=== PATIENT | female | born 1980 | race Caucasian/White ===

== ENCOUNTER 2018-03-19 08:15 | Emergency (ER) | payer OTHER ==
[2018-03-19] MEDS ORDERED: DECADRON 10MG INJ. IV ONE (08:52)
[2018-03-19] MEDS ORDERED: Sodium Chloride 0.9% 1000 ML 1,000 ML IV SCH (09:00)
[2018-03-19] MEDS ORDERED: DECADRON 10MG INJ. ONE (09:02)
[2018-03-19] MEDS ORDERED: Sodium Chloride 0.9% 1000 ML 1,000 ML ONE (09:02)
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
[2018-03-19] MEDS ORDERED: Adacel Vial IM ONE ×2 (09:14→09:15)
[2018-03-19 09:17] LABS: Appearance CLEAR (CLEAR); Bilirubin NEGATIVE (NEGATIVE); Blood SMALL Ery/ul (0-5); Glucose NEGATIVE (NEGATIVE); Ketones NEGATIVE (NEGATIVE); Leukocyte Esterase NEGATIVE (NEGATIVE); Nitrite NEGATIVE (NEGATIVE); Protein,Urine Dip NEGATIVE (Negative); Specific Gravity 1.014 (1.005-1.025); Urobilinogen NEGATIVE mg/dL (0-1)
[2018-03-19 09:39] LABS: Amphetamine,Urine NEGATIVE (NEGATIVE); Barbiturate,Urine NEGATIVE (NEGATIVE); Benzodiazepine,Urine NEGATIVE (NEGATIVE); Cocaine,Urine NEGATIVE (NEGATIVE); Methadone,Urine NEGATIVE (NEGATIVE); Opiate,Urine NEGATIVE (NEGATIVE); PCP,Urine NEGATIVE (NEGATIVE); THC,Urine POSITIVE (NEGATIVE)
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
[2018-03-19] MEDS ORDERED: TORAdol 30 mg Injection IV ONE (10:26)
[2018-03-19] MEDS ORDERED: TORAdol 30 mg Injection ONE (10:31)
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
[2018-03-19 11:31] VITALS: BP 103/86; PULSE 76; O2SAT 98
== END 2018-03-19 11:33 | disposition home or self-care (01) ==
LOC: ED 08:15
DX: S00.03XA Contusion of scalp, initial encounter (principal); S16.1XXA Strain of muscle, fascia and tendon at neck level, initial encounter; S70.01XA Contusion of right hip, initial encounter; S40.011A Contusion of right shoulder, initial encounter; R51 Headache; M54.2 Cervicalgia; M25.511 Pain in right shoulder; R07.81 Pleurodynia; M25.551 Pain in right hip; R07.9 Chest pain, unspecified; M79.671 Pain in right foot; Y04.0XXA Assault by unarmed brawl or fight, initial encounter
CPT/HCPCS: 36000; 70450; 70490; 71046; 71100; 73030; 73502; 73630; 76376; 80307; 81001; 84703; 90471; 90715; 96360; 96374; 96375; 99284; J1100; J1885; L0172

== ENCOUNTER 2018-09-04 17:00 | Emergency (ER) | payer BC, OTHER ==
[2018-09-04] MEDS ORDERED: DUONEB 0.5-3 MG/3 ml Neb IH ONE ×2 (17:07→17:28)
--- NOTE | 2018-09-04 17:24 | ERPHSYRPT ---
- History of Present Illness Time Seen by Provider: 09/04/18 17:22 Source: patient Exam Limitations: no limitations Patient Subjective Stated Complaint: Pt states "I hurt all over, my ears are messed up and I am off balance and I have been coughing." Triage Nursing Assessment: Pt presented through the front doors, alert and oriented X 3, skin pwd. PT ambulates with an upright steady gait, able to speak in clear full sentences. Pt has intermittant cough, non productive. Physician History: Pt states "I hurt all over, my ears are messed up and I am off balance and I have been coughing." c/o cough, low grade fever with chills Timing/Duration: yesterday Severity of Dyspnea-Max: mild Severity of Dyspnea-Current: mild Possible Cause: no prior episodes Associated Symptoms: cough, chest pain/discomfort, fever, wheezing, weakness, productive cough, sweating Allergies/Adverse Reactions: erythromycin base Allergy (Verified 08/28/15 10:17) Penicillins Allergy (Verified 08/28/15 10:17) Hx Tetanus, Diphtheria Vaccination/Date Given: Yes Hx Influenza Vaccination/Date Given: No Hx Pneumococcal Vaccination/Date Given: No Immunizations Up to Date: Yes - Review of Systems Constitutional: Fever, Chills, Fatigue, Malaise Eyes: No Symptoms Ears, Nose, & Throat: No Symptoms Respiratory: Cough, Dyspnea, Dyspnea on Exertion (CRISTOBAL), Wheezing Cardiac: Chest Pain, No Edema, No Syncope Abdominal/Gastrointestinal: No Abdominal Pain, No Nausea, No Vomiting, No Diarrhea Genitourinary Symptoms: No Dysuria Musculoskeletal: No Back Pain, No Neck Pain Skin: No Rash Neurological: No Dizziness, No Focal Weakness, No Sensory Changes Psychological: No Symptoms Endocrine: No Symptoms All Other Systems: Reviewed and Negative - Past Medical History Pertinent Past Medical History: Yes Respiratory History: Asthma Psycho-Social History: Anxiety - Past Surgical History Past Surgical History: Yes Musculoskeletal: Orthopedic Surgery Female Surgical History: Tubal Ligation - Social History Smoking Status: Current every day smoker How long have you smoked: 24 Exposure to second hand smoke: Yes Drug Use: marijuana Patient Lives Alone: No - Female History Hx Last Menstrual Period: 08/23/2018 Hx Now: No - Nursing Vital Signs Nursing Vital Signs: Initial Vital Signs Temperature 98.9 F 09/04/18 17:01 Pulse Rate 77 09/04/18 17:01 Respiratory Rate 22 09/04/18 17:01 Blood Pressure 123/79 09/04/18 17:01 O2 Sat by Pulse Oximetry 97 09/04/18 17:01 Pain Scale Pain Intensity 6 - Physical Exam General Appearance: no apparent distress, alert Eye Exam: PERRL/EOMI Neck Exam: normal inspection, supple Respiratory Exam: diminished breath sounds, crackles/rales, rhonchi, wheezing Cardiovascular/Chest Exam: normal heart sounds, regular rate/rhythm Abdominal/Gastrointestinal Exam: soft, No tenderness, No distention, No mass Extremity Exam: non-tender, normal range of motion, normal inspection, no calf tenderness, no pedal edema Neurologic Exam: alert, oriented x 3, cooperative, associate of science in nursing II-XII nml as tested, sensation nml, No motor deficits Skin Exam: normal color, warm, No dry SpO2 Interpretation: normal SpO2: 100 - Course Nursing assessment & vital signs reviewed: Yes - Radiology Exams Chest X-ray Interpretation: Reviewed by me, No Pneumonia Ordered Tests: Active Orders 24 hr Category Date Time Status Oxygen-ED Only Nasal Cannula 2 lpm Care 09/04/18 17:07 Active CHEST 2 VIEWS (PA AND LAT) Stat Exams 09/04/18 17:08 Taken BMP Stat Lab 09/04/18 17:24 Completed CBC W DIFF Stat Lab 09/04/18 17:24 Completed Peak Expiratory Flow Rate ONCE RT 09/04/18 17:41 Completed Respiratory Therapy Assessment DAILY RT 09/04/18 17:38 Completed Medication Summary Discontinued Medications Generic Name Dose Route Start Last Admin Trade Name Freq PRN Reason Stop Dose Admin Albuterol/Ipratropium 3 ml 09/04/18 17:07 09/04/18 17:36 Duoneb 0.5-3 Mg/3 Ml Neb IH 09/04/18 17:08 3 ml STAT ONE Administration Albuterol/Ipratropium Confirm 09/04/18 17:28 Duoneb 0.5-3 Mg/3 Ml Neb Administered 09/04/18 17:29 Dose 3 ml IH .STK-MED ONE Ceftriaxone Sodium 1,000 mg 09/04/18 17:43 Rocephin 1000 Mg Inj IM 09/04/18 17:44 STAT ONE Lab/Rad Data: Laboratory Result Diagrams 09/04/18 17:24 09/04/18 17:24 Laboratory Results 09/04/18 09/04/18 Range/Units 17:24 17:24 WBC 5.1 (4.0-10.5) K/mm3 RBC 4.46 (4.1-5.4) M/mm3 Hgb 13.6 (12.0-16.0) gm/dl Hct 40.4 (35-47) % MCV 90.6 (78-100) fl MCH 30.5 (26-32) pg MCHC 33.7 (32-36) g/dl RDW 14.9 H (11.5-14.0) % Plt Count 204 (150-450) K/mm3 MPV 11.0 H (6-9.5) fl Gran % 55.4 (36.0-66.0) % Eos # (Auto) 0.17 (0-0.5) Absolute Lymphs (auto) 1.57 (1.0-4.6) Absolute Monos (auto) 0.50 (0.0-1.3) Lymphocytes % 31.1 (24.0-44.0) % Monocytes % 9.9 (0.0-12.0) % Eosinophils % 3.4 (0.00-5.0) % Basophils % 0.2 (0.0-0.4) % Absolute Granulocytes 2.80 (1.4-6.9) Basophils # 0.01 (0-0.4) Sodium 141 (137-145) mmol/L Potassium 3.9 (3.5-5.1) mmol/L Chloride 111 H (98-107) mmol/L Carbon Dioxide 22 (22-30) mmol/L Anion Gap 12.6 (5-15) MEQ/L BUN 6 L (7-17) mg/dL Creatinine 0.68 (0.52-1.04) mg/dL Estimated GFR > 60.0 ML/MIN Glucose 79 (74-106) mg/dL Calcium 9.0 (8.4-10.2) mg/dL - Progress Progress: improved Air Movement: fair Blood Culture(s) Obtained: No Antibiotics given: Yes Counseled pt/family regarding: lab results, diagnosis, need for follow-up, rad results, smoking cessation - Departure Departure Disposition: Home Clinical Impression: Bronchitis Condition: Stable Critical Care Time: No Referrals: ARMEN ROME [ACTIVE STAFF] - Instructions: Acute Bronchitis, Adult (DC) Additional Instructions: Discharge/Care Plan YONI TERESA was seen on 09/04/18 in the Emergency Room. The patient was counseled regarding Diagnosis,Lab results, Imaging studies, need for follow up and when to return to the Emergency Room. Prescriptions given: Discharge Note I have spoken with the patient and/or caregivers. I have explained the patient' s condition, diagnosis and treatment plan based on the information available to me at this time. I have answered the patient's and/or caregiver's questions and addressed any concerns. The patient and/or caregivers have as good understanding of the patient's diagnosis, condition and treatment plan as can be expected at this point. The vital signs have been stable. The patient's condition is stable and appropriate for discharge from the emergency department. The patient will pursue further outpatient evaluation with the primary care physician or other designated or consulting physician as outlined in the discharge instructions. The patient and/or caregivers are agreeable to this plan of care and follow-up instructions have been explained in detail. The patient and/or caregivers have received these instruction. The patient/and or caregivers are aware that any significant change in condition or worsening of symptoms should prompt an immediate return to this or the closest emergency department or call 911. Prescriptions: Ipratropium/Albuterol Sulfate [Combivent Inhaler] 15 gm IH QIDPRN PRN #1 aer.w.adap PRN Reason: Shortness Of Breath Doxycycline Hyclate 100 mg PO BID #20 tablet Albuterol/Ipratropium 3ml Neb* [DUONEB 0.5-3 MG/3 ml Neb] 3 ml IH QID #60 ampul.neb Guaifenesin/Hydrocodone [Hydrocodone-Guaif 2.5-200 mg/5] 5 ml PO QID #120 solution MDD 4 times a day
[2018-09-04 17:27] LABS: BASOPHIL % 0.2 % (0.0-0.4); Basophil (Absolute #) 0.01 (0-0.4); Eosinophil % 3.4 % (0.00-5.0); Eosinophil (Absolute #) 0.17 (0-0.5); Granulocytes % 55.4 % (36.0-66.0); Hematocrit 40.4 % (35-47); Hemoglobin 13.6 gm/dl (12.0-16.0); Lymphocyte (Absolute #) 1.57 (1.0-4.6); Lymphocytes % 31.1 % (24.0-44.0); Mean Cell Volume 90.6 fl (78-100); Mean Corpuscular Hemoglobin 30.5 pg (26-32); Mean Corpuscular Hgb Concent. 33.7 g/dl (32-36); Monocytes % 9.9 % (0.0-12.0); Platelet Count 204 K/mm3 (150-450); Red Blood Count 4.46 M/mm3 (4.1-5.4); Red Cell Distribution Width 14.9 % (11.5-14.0); White Blood Count 5.1 K/mm3 (4.0-10.5)
[2018-09-04 17:40] LABS: ANION GAP 12.6 MEQ/L (5-15); BLOOD UREA NITROGEN 6 mg/dL (7-17); CHLORIDE 111 mmol/L (98-107); Carbon Dioxide 22 mmol/L (22-30); Creatinine 1 0.68 mg/dL (0.52-1.04); Glucose 79 mg/dL (74-106); Potassium 3.9 mmol/L (3.5-5.1); SODIUM 141 mmol/L (137-145)
[2018-09-04] MEDS ORDERED: Rocephin 1000 MG INJ IM ONE (17:43)
[2018-09-04] MEDS ORDERED: Rocephin 1000 MG INJ ONE (18:02)
[2018-09-04 19:05] VITALS: BP 120/76; PULSE 72; O2SAT 98
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
== END 2018-09-04 19:07 | disposition home or self-care (01) ==
LOC: ED 17:00
DX: J40 Bronchitis, not specified as acute or chronic (principal); J45.909 Unspecified asthma, uncomplicated; Z72.0 Tobacco use
CPT/HCPCS: 36415; 71046; 80048; 85025; 94150; 94640; 96372; 99284; J0696; A9270-GY

== ENCOUNTER 2019-07-07 21:26 | Emergency (ER) | payer OTHER ==
[2019-07-07] MEDS ORDERED: PERCOCET TABLET 5/325MG PO STA (21:39)
[2019-07-07] MEDS ORDERED: TORAdol 30 mg Injection IM ONE (21:40)
[2019-07-07] MEDS ORDERED: TORAdol 30 mg Injection ONE (21:51)
[2019-07-07] MEDS ORDERED: PERCOCET TABLET 5/325MG ONE (21:51)
--- NOTE | 2019-07-07 22:32 | ERPHSYRPT ---
- History of Present Illness Time Seen by Provider: 07/07/19 21:38 Source: patient Exam Limitations: no limitations Patient Subjective Stated Complaint: Patient states " I hopped off the front porch and landed onto the side of my left ankle and felt something snap". Triage Nursing Assessment: Patient asrrived to ER in W/C. Patient tearful and states she is in alot of pain. Patient 1 assist to tansfer to bed. Patient able to answer questions appropriatley. Patient A/O times 4. Patient unable to bear weight on left lower foot. Left ankle with mild swelling on outerside. Patient is able to wiggle toes and can move but states she cant stand the pain. No bruising noted. Cap refill < 3 seconds. + Pedal pulse to left foot strong and palpable. Patient sattes she has good sensation. Physician History: 38 years old female presented in the ER after she accidentally fell on her left ankle while she was hopping in her house. She heard a popping sound. She is unable to put any weight afterward. She is complaining of moderate to severe sharp shooting pain in the left ankle, aggravated with movements, palpation and partial relief with being still. Associated with swelling especially on the lateral ankle. No swelling or pain in the foot itself. No injury anywhere else. Method of Injury: fell Occurred: just prior to arrival Quality: sharpness Severity of Pain-Max: severe Severity of Pain-Current: severe Lower Extremities Pain: ankle: left Modifying Factors: Improves With: cold therapy, immobilization, movement Associated Symptoms: unable to bear weight Allergies/Adverse Reactions: erythromycin base Allergy (Verified 08/28/15 10:17) Penicillins Allergy (Verified 08/28/15 10:17) Hx Tetanus, Diphtheria Vaccination/Date Given: Yes Hx Influenza Vaccination/Date Given: No Hx Pneumococcal Vaccination/Date Given: No Immunizations Up to Date: Yes Travel Risk - International Travel Have you traveled outside of the country in past 3 weeks: No Have you or anyone close to you been diagnosed with or: No Do your reside in a community with a known COVID-19 case?: Yes If Yes where:: [facility] - Coronavirus Screening Has patient experienced Coronavirus symptoms: No - Review of Systems Constitutional: No Symptoms Eyes: No Symptoms Ears, Nose, & Throat: No Symptoms Respiratory: No Symptoms Cardiac: No Symptoms Abdominal/Gastrointestinal: No Symptoms Musculoskeletal: Injury, Joint Pain, Joint Swelling Skin: No Symptoms Neurological: No Symptoms Psychological: No Symptoms Endocrine: No Symptoms - Past Medical History Pertinent Past Medical History: Yes Neurological History: No Pertinent History ENT History: No Pertinent History Cardiac History: No Pertinent History Respiratory History: Asthma Endocrine Medical History: No Pertinent History Musculoskeletal History: No Pertinent History GI Medical History: GERD History: No Pertinent History Psycho-Social History: Anxiety, Depression Female Reproductive Disorders: No Pertinent History - Past Surgical History Past Surgical History: Yes Neuro Surgical History: No Pertinent History Cardiac: No Pertinent History Respiratory: No Pertinent History Gastrointestinal: No Pertinent History Genitourinary: No Pertinent History Musculoskeletal: Orthopedic Surgery Female Surgical History: Section, Tubal Ligation Other Surgical History: Right Knee Surgery. - Social History Smoking Status: Current every day smoker How long have you smoked: 25 years Exposure to second hand smoke: Yes Drug Use: marijuana Patient Lives Alone: No - Female History Hx Last Menstrual Period: Tubes tied Hx Now: No - Nursing Vital Signs Nursing Vital Signs: Initial Vital Signs Temperature 98.1 F 07/07/19 21:36 Pulse Rate 85 07/07/19 21:36 Respiratory Rate 20 07/07/19 21:36 Blood Pressure 136/86 07/07/19 21:36 O2 Sat by Pulse Oximetry 99 07/07/19 21:36 Pain Scale Pain Intensity 10 - Physical Exam General Appearance: no apparent distress Eyes, Ears, Nose, Throat Exam: normal ENT inspection Neck Exam: normal inspection, non-tender, supple Cardiovascular/Respiratory Exam: chest non-tender, normal breath sounds, regular rate/rhythm Back Exam: decreased range of motion, point tenderness Ankle Exam: right ankle: non-tender, normal inspection, normal range of motion, left ankle: bone tenderness, limited range of motion, pain, soft tissue tenderness, swelling Neuro/Tendon Exam: normal sensation Mental Status Exam: alert, oriented x 3, cooperative Skin Exam: normal color SpO2 Interpretation: normal SpO2: 98 O2 Delivery: Room Air - Course Nursing assessment & vital signs reviewed: Yes Ordered Tests: Active Orders 24 hr Category Date Time Status ANKLE (3 VIEWS) Stat Exams 07/07/19 21:39 Taken Medication Summary Discontinued Medications Generic Name Dose Route Start Last Admin Trade Name Freq PRN Reason Stop Dose Admin Ketorolac Tromethamine 30 mg 07/07/19 21:40 07/07/19 21:54 Toradol 30 Mg Injection IM 07/07/19 21:41 30 mg STAT ONE Administration Ketorolac Tromethamine Confirm 07/07/19 21:51 Toradol 30 Mg Injection Administered 07/07/19 21:52 Dose 30 mg .ROUTE .STK-MED ONE Oxycodone/Acetaminophen 1 tab 07/07/19 21:39 07/07/19 21:53 Percocet Tablet 5/325mg PO 07/07/19 21:40 1 tab STAT STA Administration Oxycodone/Acetaminophen Confirm 07/07/19 21:51 Percocet Tablet 5/325mg Administered 07/07/19 21:52 Dose 1 tab .ROUTE .STK-MED ONE - Progress Progress: improved, pain not gone completely, re-examined Progress Note: 07/07/19 22:59 38 years old is evaluated for left ankle pain. I did not appreciate any obvious fracture on the x-rays. Official read is pending. I believe patient has ankle sprain. Placed on a Aircast and crutches along with pain medication. Recommended outpatient follow-up with Ortho. Counseled pt/family regarding: diagnosis, need for follow-up, rad results - Departure Departure Disposition: Home Clinical Impression: Ankle sprain Qualifiers: Encounter type: initial encounter Involved ligament of ankle: unspecified ligament Laterality: left Qualified Code(s): S93.402A - Sprain of unspecified ligament of left ankle, initial encounter Condition: Stable Critical Care Time: No Referrals: FRANCESCO SHIELDS [Primary Care Provider] - Follow Up with PCP/3 days TIM THOMPSON NP [NON-STAFF PHY W/O PRIVILEGES] - (1-2 days for re evaluation) Instructions: Ankle Sprain (DC) Additional Instructions: Follow-up with primary care and orthopedic surgery for reevaluation. Weightbearing as tolerated. Take pain medications as needed. Return to ER for any worsening. Prescriptions: Hydrocodone/APAP 5-325 Tab^^^ [[place] 5-325 Tablet^^^] 1 tab PO Q6HPRN PRN #10 tablet MDD 6 PRN Reason: Pain
[2019-07-07 22:59] VITALS: BP 127/87; PULSE 86
[2019-07-07 23:00] VITALS: O2SAT 98
--- NOTE | 2019-07-08 08:26 | XRAY ---
Indication: Pain following fall. Comparison: None 3 views of the left ankle demonstrates anterior lateral soft tissue swelling with incidental tiny heel spurs, punctate medial malleolus tip heterotopic ossification, and small cuboid accessory ossicle. No other bony, articular, or soft tissue abnormalities.
== END 2019-07-07 23:27 | disposition home or self-care (01) ==
LOC: ED 21:26
DX: S93.402A Sprain of unspecified ligament of left ankle, initial encounter (principal); X50.0XXA Overexertion from strenuous movement or load, initial encounter; X50.9XXA Other and unspecified overexertion or strenuous movements or postures, initial encounter; Y93.89 Activity, other specified; Y92.89 Other specified places as the place of occurrence of the external cause; Y99.9 Unspecified external cause status; M25.572 Pain in left ankle and joints of left foot
CPT/HCPCS: 73610; 96372; 99284; J1885; A9270-GY

== ENCOUNTER 2019-10-09 18:55 | Emergency (ER) | payer OTHER ==
[2019-10-09] MEDS ORDERED: TORAdol 30 mg Injection IV ONE ×2 (19:21→22:18)
[2019-10-09] MEDS ORDERED: Sodium Chloride 0.9% 1000 ML 1,000 ML IV STA ×2 (19:21→22:12)
[2019-10-09] MEDS ORDERED: Sodium Chloride 0.9% 1000 ML 1,000 ML ONE ×2 (19:36→22:13)
[2019-10-09] MEDS ORDERED: Hydromorphone 1 mg/ml Ampule IV ONE (19:36)
[2019-10-09] MEDS ORDERED: TORAdol 30 mg Injection ONE ×2 (19:36→22:20)
[2019-10-09] MEDS ORDERED: Hydromorphone 1 mg/ml Ampule ONE (19:37)
[2019-10-09 20:06] LABS: Absolute Neutrophil Ct (ANC) 7.12 (1.4-6.9); BASOPHIL % 0.2 % (0.0-0.4); Basophil (Absolute #) 0.02 (0-0.4); Eosinophil % 0.3 % (0.00-5.0); Eosinophil (Absolute #) 0.03 (0-0.5); Hematocrit 38.1 % (35-47); Hemoglobin 12.4 gm/dl (12.0-16.0); Lymphocyte (Absolute #) 1.94 (1.0-4.6); Mean Cell Volume 87.6 fl (78-100); Mean Corpuscular Hemoglobin 28.5 pg (26-32); Mean Corpuscular Hgb Concent. 32.5 g/dl (32-36); Mean Platelet Volume 11.4 fl (7.5-11.0); Monocyte (Absolute #) 1.11 (0.0-1.3); Monocytes % 10.9 % (0.0-12.0); Neutrophil % 69.6 % (36.0-66.0); Platelet Count 225 K/mm3 (150-450); Red Blood Count 4.35 M/mm3 (4.1-5.4); Red Cell Distribution Width 17.9 % (11.5-14.0); White Blood Count 10.2 K/mm3 (4.0-10.5)
[2019-10-09 20:23] LABS: ALBUMIN 4.5 g/dL (3.5-5.0); ALKALINE PHOSPHATASE 63 U/L (38-126); AMYLASE 87 U/L (30-110); ANION GAP 8.3 MEQ/L (5-15); BLOOD UREA NITROGEN 8 mg/dL (7-17); CHLORIDE 114 mmol/L (98-107); Calcium 9.6 mg/dL (8.4-10.2); Carbon Dioxide 23 mmol/L (22-30); Creatinine 1 0.95 mg/dL (0.52-1.04); Glucose 77 mg/dL (74-106); LIPASE 25 U/L (23-300); Potassium 3.2 mmol/L (3.5-5.1); SGOT/AST 19 U/L (14-36); SGPT/ALT 16 U/L (0-35); SODIUM 142 mmol/L (137-145); Total Protein 7.6 g/dL (6.3-8.2)
[2019-10-09] MEDS ORDERED: Zofran 4 MG/2 ML VIAL ONE (20:37)
[2019-10-09] MEDS ORDERED: Zofran 4 MG/2 ML VIAL IV ONE (20:37)
[2019-10-09 22:14] LABS: Appearance SLIGHTLY CLOUDY (CLEAR); Bilirubin NEGATIVE (NEGATIVE); Blood NEGATIVE Ery/ul (0-5); Epithelial Cells RARE /HPF (FEW); Glucose NEGATIVE (NEGATIVE); Ketones SMALL (NEGATIVE); Leukocyte Esterase NEGATIVE (NEGATIVE); Mucus SLIGHT /HPF (NEGATIVE); Nitrite NEGATIVE (NEGATIVE); Protein,Urine Dip NEGATIVE (Negative); RBC 0-2 /HPF (0-2); Specific Gravity 1.013 (1.005-1.025); Urobilinogen NEGATIVE mg/dL (0-1)
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
[2019-10-09 22:33] LABS: Amphetamine,Urine NEGATIVE (NEGATIVE); Barbiturate,Urine NEGATIVE (NEGATIVE); Benzodiazepine,Urine POSITIVE (NEGATIVE); Cocaine,Urine NEGATIVE (NEGATIVE); Methadone,Urine NEGATIVE (NEGATIVE); Opiate,Urine POSITIVE (NEGATIVE); PCP,Urine NEGATIVE (NEGATIVE); THC,Urine POSITIVE (NEGATIVE)
[2019-10-10 00:16] VITALS: BP 105/63; PULSE 84; O2SAT 97
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
== END 2019-10-09 23:45 | disposition home or self-care (01) ==
LOC: ED 18:55
DX: S00.83XA Contusion of other part of head, initial encounter (principal); S80.02XA Contusion of left knee, initial encounter; S80.01XA Contusion of right knee, initial encounter; S20.229A Contusion of unspecified back wall of thorax, initial encounter; S40.011A Contusion of right shoulder, initial encounter; S70.02XA Contusion of left hip, initial encounter; S70.01XA Contusion of right hip, initial encounter; S90.32XA Contusion of left foot, initial encounter; S90.31XA Contusion of right foot, initial encounter; S90.812A Abrasion, left foot, initial encounter; S90.811A Abrasion, right foot, initial encounter; S80.212A Abrasion, left knee, initial encounter; S80.211A Abrasion, right knee, initial encounter; S00.31XA Abrasion of nose, initial encounter; S00.81XA Abrasion of other part of head, initial encounter; S50.811A Abrasion of right forearm, initial encounter; S00.12XA Contusion of left eyelid and periocular area, initial encounter; Y04.2XXA Assault by strike against or bumped into by another person, initial encounter; Y92.009 Unspecified place in unspecified non-institutional (private) residence as the place of occurrence of the external cause; M54.2 Cervicalgia; Z79.899 Other long term (current) drug therapy
CPT/HCPCS: 36000; 36415; 70450; 70486; 71045; 72125; 73030; 73521; 73522; 73562; 80053; 80307; 81001; 82150; 82550; 83690; 84484; 84703; 85025; 93005; 96360; 96361; 96374; 96375; 96376; 99285; J1170; J1885; J2405

== ENCOUNTER 2020-11-20 09:40 | Emergency (ER) | payer OTHER ==
[2020-11-20] MEDS ORDERED: Sodium Chloride 0.9% 1000 ML 1,000 ML IV STA (09:56)
[2020-11-20] MEDS ORDERED: Sodium Chloride 0.9% 1000 ML 1,000 ML ONE (09:59)
[2020-11-20 10:07] LABS: Absolute Neutrophil Ct (ANC) 3.45 (1.4-6.9); BASOPHIL % 0.2 % (0.0-0.4); Basophil (Absolute #) 0.01 (0-0.4); Eosinophil % 1.8 % (0.00-5.0); Eosinophil (Absolute #) 0.09 (0-0.5); Hemoglobin 13.6 gm/dl (12.0-16.0); Lymphocyte (Absolute #) 1.19 (1.0-4.6); Lymphocytes % 23.4 % (24.0-44.0); Mean Cell Volume 93.3 fl (78-100); Mean Corpuscular Hemoglobin 30.2 pg (26-32); Mean Corpuscular Hgb Concent. 32.4 g/dl (32-36); Monocyte (Absolute #) 0.34 (0.0-1.3); Monocytes % 6.7 % (0.0-12.0); Neutrophil % 67.9 % (36.0-66.0); Platelet Count 224 K/mm3 (150-450); Red Cell Distribution Width 14.4 % (11.5-14.0); White Blood Count 5.1 K/mm3 (4.0-10.5)
[2020-11-20 10:13] LABS: Appearance CLEAR (CLEAR); Bilirubin NEGATIVE (NEGATIVE); Blood NEGATIVE Ery/ul (0-5); Epithelial Cells RARE /HPF (FEW); Glucose NEGATIVE (NEGATIVE); Ketones NEGATIVE (NEGATIVE); Leukocyte Esterase NEGATIVE (NEGATIVE); Mucus SLIGHT /HPF (NEGATIVE); Nitrite NEGATIVE (NEGATIVE); Protein,Urine Dip NEGATIVE (Negative); Specific Gravity 1.008 (1.005-1.025); Urobilinogen NEGATIVE mg/dL (0-1)
[2020-11-20 10:16] LABS: ALBUMIN 4.3 g/dL (3.5-5.0); ALKALINE PHOSPHATASE 40 U/L (38-126); ANION GAP 15.3 MEQ/L (5-15); BLOOD UREA NITROGEN 14 mg/dL (7-17); CHLORIDE 105 mmol/L (98-107); Calcium 8.9 mg/dL (8.4-10.2); Carbon Dioxide 22 mmol/L (22-30); Creatinine 1 0.73 mg/dL (0.52-1.04); EST GLOMERULAR FILTRATION RATE > 60.0 ML/MIN; Glucose 133 mg/dL (74-106); Potassium 4.6 mmol/L (3.5-5.1); SGOT/AST 14 U/L (14-36); SGPT/ALT 12 U/L (0-35); SODIUM 138 mmol/L (137-145); Total Protein 7.2 g/dL (6.3-8.2)
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
--- NOTE | 2020-11-20 10:52 | XRAY ---
Exam: AP upright portable chest film from 11/20/2020. Comparison: AP upright portable chest film from 08/17/2020. Indication: Cough; shortness of breath. Findings: The transverse heart size is normal. I again see some granulomatous calcifications at the superior margin of the left hilum/AP window, as well as a calcified granuloma within the peripheral left upper lung field. This is unchanged from 08/17/2020. There is a tiny transverse strand of plate atelectasis or scar formation within the peripheral right lower lung field. In retrospect, I believe this is similar to 08/17/2020. The lungs are adequately inflated. No air space infiltrates, vascular congestion, pneumothorax, or pleural fluid is seen. There is a slight S-shaped scoliosis within the visualized thoracolumbar spine. No acute osseous process is seen. Impression: 1. I again see some old healed granulomatous disease on the left. 2. No air space lung infiltrates or other acute cardiopulmonary disease is seen. 3. Minimal plate atelectasis versus linear scarring at the peripheral right lower lung field, no change.
[2020-11-20] MEDS ORDERED: DECADRON 10MG INJ. IV ONE (10:59)
[2020-11-20] MEDS ORDERED: DECADRON 10MG INJ. ONE (11:03)
[2020-11-20] MEDS ORDERED: TORAdol 30 mg Injection IM ONE (11:10)
[2020-11-20 11:11] VITALS: BP 127/86; PULSE 68
[2020-11-20] MEDS ORDERED: TORAdol 30 mg Injection ONE (11:11)
[2020-11-20 11:26] VITALS: O2SAT 97
== END 2020-11-20 11:26 | disposition home or self-care (01) ==
LOC: ED 09:40
DX: U07.1 COVID-19 (principal)
CPT/HCPCS: 36000; 36415; 71045; 80053; 81001; 83605; 85025; 96372; 96374; 99284; U0003; J1100; J1885

== ENCOUNTER 2022-12-22 13:34 | Emergency (ER) | payer MEDICAID, OTHER ==
--- NOTE | 2022-12-22 13:37 | ERPHSYRPT ---
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 It is in the lower lumbar region in the paraspinous muscle distribution. It is on the left side. Patient has been doing heavy lifting twisting turning at work. In addition, she has been helping a friend move. She did not fall or have an acute traumatic injury to this area. Patient is on ibuprofen daily as well as clonazepam. However, she states that clonazepam she has not been taking for the last few days because she is out of that medication. Patient has no difficulty urinating and has no urinary tract infection symptoms. She has no abdominal pain. She denies chest pain and she denies shortness of breath. She absolutely does not want any narcotic medication. Timing/Duration: week(s) Method of Injury: bending, lifting, turning Quality: sharp Back Pain Location: paraspinous muscles (Left, lumbar level) Severity of Pain-Max: moderate Severity of Pain-Current: moderate Modifying Factors: Improves With: movement Associated Symptoms: lower back pain (Left side paraspinous muscle), muscle spasms, No urinary incontinence, No loss of bowel control, No numbness in legs/feet Previous symptoms: no prior history, no recent treatment Allergies/Adverse Reactions: aripiprazole [From Abilify] Allergy (Verified 12/22/22 13:48) erythromycin base Allergy (Verified 12/22/22 13:48) Penicillins Allergy (Verified 12/22/22 13:48) Home Medications: Fluticasone/Vilanterol [Breo Ellipta 100-25 Mcg INH] 1 ea DAILY 10/09/19 [History] OLANZapine [Olanzapine] 1 ea DAILY 10/09/19 [History] Omeprazole 1 ea DAILY 10/09/19 [History] Prazosin HCl 1 ea DAILY 10/09/19 [History] Ropinirole 2Mg [Requip 2Mg Tab] 1 ea DAILY 10/09/19 [History] buPROPion HCL [Bupropion HCl] 1 ea DAILY 10/09/19 [History] clonazePAM [Clonazepam] 1 ea DAILY 10/09/19 [History] Ergocalciferol (Vitamin D2) [Vitamin D2] 1 ea UD 12/22/22 [History] Ibuprofen 200 mg [Motrin 200 mg] 200 mg PO TID 12/22/22 [History] Oxybutynin Chloride Xl 5 mg [Ditropan XL 5 MG] 5 mg PO BID 12/22/22 [History] Trazodone HCl 50 mg [Desyrel 50 mg] 50 mg PO DAILY 12/22/22 [History] Hx Tetanus, Diphtheria Vaccination/Date Given: Yes Hx Influenza Vaccination/Date Given: No Hx Pneumococcal Vaccination/Date Given: No Travel Risk - International Travel Have you traveled outside of the country in past 3 weeks: No - Coronavirus Screening Are you exhibiting any of the following symptoms?: No Close contact with a COVID-19 positive Pt in past 14-21 Days: No - Vaccine Status Have you recieved a Covid-19 vaccination: No - Review of Systems Constitutional: No Symptoms Eyes: No Symptoms Ears, Nose, & Throat: No Symptoms Respiratory: No Symptoms Cardiac: No Symptoms Abdominal/Gastrointestinal: No Symptoms Genitourinary Symptoms: No Symptoms Musculoskeletal: Back Pain Skin: No Symptoms Neurological: No Symptoms Psychological: No Symptoms Endocrine: No Symptoms Hematologic/Lymphatic: No Symptoms Immunological/Allergic: No Symptoms All Other Systems: Reviewed and Negative - Past Medical History Pertinent Past Medical History: Yes Neurological History: No Pertinent History ENT History: No Pertinent History Cardiac History: No Pertinent History Respiratory History: COPD, Asthma Endocrine Medical History: Liver Disease Musculoskeletal History: Other GI Medical History: GERD History: No Pertinent History Psycho-Social History: Depression, Anxiety Female Reproductive Disorders: No Pertinent History Other Medical History: PATIENT STATES SHE BROKE LEFT ANKLE IN APRIL (DIDN'T GET CONFIRMED AT DOCTOR OFFICE - "JUST KNOW BECAUSE HOW IT FELT"). DX'D WITH HEP C BUT HAS ANTIBODIES SO NO LONGER ACTIVE OR CONTAGIOUS. DEPRESSION, ANXIETY, GERD, RESPIRATORY ALLERGIES - Past Surgical History Past Surgical History: Yes Neuro Surgical History: No Pertinent History Cardiac: No Pertinent History Respiratory: No Pertinent History Gastrointestinal: No Pertinent History Genitourinary: No Pertinent History Musculoskeletal: Orthopedic Surgery Female Surgical History: Tubal Ligation, Section Other Surgical History: Right Knee Surgery. - Social History Smoking Status: Current every day smoker How long have you smoked: 25 years Exposure to second hand smoke: No Drug Use: none Patient Lives Alone: Yes Significant Family History: no pertinent family hx - Nursing Vital Signs Nursing Vital Signs: Initial Vital Signs Temperature 97.0 F 12/22/22 13:57 Pulse Rate 64 12/22/22 13:57 Respiratory Rate 18 12/22/22 13:57 Blood Pressure 115/71 12/22/22 13:57 O2 Sat by Pulse Oximetry 98 12/22/22 13:57 Pain Scale Pain Intensity [Back] 7 Pain Intensity 7 - Physical Exam General Appearance: no apparent distress, alert, anxiety, obese Eye Exam: PERRL/EOMI, eyes nml inspection Ears, Nose, Throat Exam: normal ENT inspection, moist mucous membranes Neck Exam: normal inspection, non-tender, supple, full range of motion Respiratory Exam: airway intact, No chest tenderness, No respiratory distress Gastrointestinal Exam: No tenderness Pelvic Exam: not done Rectal Exam: not done Back Exam: normal inspection, normal range of motion, muscle spasm (Left lower paraspinous muscle), No CVA tenderness, No vertebral tenderness Extremity Exam: normal inspection, normal range of motion, pelvis stable Neurologic Exam: alert, oriented x 3, cooperative, roll weigher II-XII nml as tested, normal mood/affect, nml cerebellar function, nml station & gait, sensation nml Skin Exam: normal color, warm, dry Lymphatic Exam: No adenopathy SpO2 Interpretation: normal - Course Nursing assessment & vital signs reviewed: Yes - Progress Progress: improved, pain not gone completely Progress Note: 12/22/22 14:27 This patient's medical issue is 1 of low complexity. The level of complexity in the work-up performed is based on review of the patient's past medical history, review the patient's medication list, review the patient's drug allergy list, history of present illness and physical findings on examination. No laboratory radiographic studies are necessary in this patient. We will provide the patient with injection of Solu-Medrol 125 mg intramuscularly and 60 mg intramuscular injection of Norflex. Counseled pt/family regarding: diagnosis, need for follow-up Medical Desision Making - Independent Historian Additional History obtained from: Relative/friend - Diagnostic Testing Diagnostic test were ordered, analyzed, and reviewed by me: No - Risk of complications The pt has a mod risk of morbidity or mortality based on: Need for prescription drug management - Departure Departure Disposition: Home Clinical Impression: Back pain Condition: Stable Critical Care Time: No Referrals: PRASHANT GEORGE NP [Primary Care Provider] - Follow up/PCP as directed Additional Instructions: Take your medication as prescribed. Also purchase [id number] lidocaine patch in place in the area of most tenderness and follow the directions on the product. May also alternate ice and heat to the tender area. Do not apply ice or heat directly to the skin. In addition, may use massage therapy to that area. Perform the back exercises laying on your back as discussed. Call your primary care doctor tomorrow, 12/23/2022, and make arrangements for further evaluation management in approximately 3 to 5 days. Prescriptions: Prednisone 10 mg [Deltasone 10 mg] 10 mg PO TID #12 tablet Orphenadrine Citrate 100 mg [Norflex 100 MG Tablet] 100 mg PO BID #10 tab
[2022-12-22 13:58] VITALS: RESP 18; TEMP 97
[2022-12-22] MEDS ORDERED: Norflex 60 MG/2 ML IM ONE (14:31)
[2022-12-22] MEDS ORDERED: solu-MEDROL 125 MG, Sterile H2O 10 ml 2 ML IM ONE ×2 (14:31)
[2022-12-22] MEDS ORDERED: Norflex 60 MG/2 ML ONE (14:41)
[2022-12-22] MEDS ORDERED: Sterile H2O 10 ml IJ ONE (14:41)
[2022-12-22] MEDS ORDERED: solu-MEDROL ONE (14:42)
[2022-12-22 14:46] VITALS: BP 122/83
[2022-12-22 14:51] VITALS: PULSE 64; O2SAT 96
== END 2022-12-22 14:59 | disposition home or self-care (01) ==
LOC: ED 13:34
DX: M54.50 Low back pain, unspecified (principal); Z79.52 Long term (current) use of systemic steroids; Z79.899 Other long term (current) drug therapy; Z28.310 Unvaccinated for COVID-19; Z72.0 Tobacco use
CPT/HCPCS: 96372; 99283; J2360; J2930